=== PATIENT | female | born 1985 | race Caucasian/White ===

== ENCOUNTER → 2021-12-30 | Outpatient (CLI) | payer MEDICAID ==
[2021-12-30 10:00] LABS: HEMOGLOBIN 14.4 gm/dl (12.3-15.3); RED BLOOD COUNT 4.72 M/UL (4.00-5.10)
[2021-12-30 10:23] LABS: BUN/CREATININE RATIO 32 (0-10)
[2021-12-31 08:17] LABS: HIV AB/P24 AG SCREEN Non Reactive (Non Reactive); VITAMIN D, 25-HYDROXY 16.1 ng/mL (30.0-100.0)
== END ==
LOC: LAB 09:11
PROVIDERS: Nurse Practitioner Family
DX: Z13.21 Encounter for screening for nutritional disorder (principal); Z13.29 Encounter for screening for other suspected endocrine disorder; R10.13 Epigastric pain; B19.20 Unspecified viral hepatitis C without hepatic coma; R56.9 Unspecified convulsions
CPT/HCPCS: 36415; 80053; 80061; 82607; 84439; 84443; 85025; 86704; 86705; 86706; 86707; 87340; 87350; 87389

== ENCOUNTER 2022-01-01 12:13 | Emergency (ER) | payer MEDICAID ==
[2022-01-01 13:25] LABS: RED BLOOD COUNT 4.53 M/UL (4.00-5.10); WHITE BLOOD COUNT 6.3 K/UL (4.5-11.0)
[2022-01-01 13:51] LABS: BUN/CREATININE RATIO 21 (0-10)
== END 2022-01-01 15:34 | disposition home or self-care (01) ==
LOC: ER1 12:13
PROVIDERS: Physician Assistant
DX: F41.9 Anxiety disorder, unspecified (principal); B19.20 Unspecified viral hepatitis C without hepatic coma; F17.210 Nicotine dependence, cigarettes, uncomplicated; Z88.2 Allergy status to sulfonamides
CPT/HCPCS: 71045; 80053; 82550; 82553; 83880; 84484; 85025; 93005; 99285

== ENCOUNTER → 2022-01-28 | Outpatient (CLI) | payer OTHER | LOC: MAMO 14:20 | DX: R92.8 Other abnormal and inconclusive findings on diagnostic imaging of breast (principal); N64.52 Nipple discharge | CPT/HCPCS: 76641-LT; 77066; G0279 ==